=== PATIENT | male | born 1975 ===

== ENCOUNTER → 2018-04-14 15:24 | Outpatient (CLI) | payer OTHER ==
[~2018-04-14 15:24] MED LIST: COLACE100 MG PO; DILTIAZEM 24HR120 MG PO; HYDROCHLOROTH PO; PERCOCET 5-3251 EACH PO
== END | disposition home or self-care (01) ==
LOC: EKG 15:24
DX: K60.3 Anal fistula (principal); Z01.810 Encounter for preprocedural cardiovascular examination

== ENCOUNTER 2018-04-17 05:37 | Day surgery (SDC) | payer OTHER ==
[~2018-04-17 05:37] MED LIST changes: -COLACE100 MG PO; -PERCOCET 5-3251 EACH PO
[2018-04-17] MEDS ORDERED: COLACE100 MG PO (09:36)
[2018-04-17] MEDS ORDERED: PERCOCET 5-3251 EACH PO (09:36)
== END 2018-04-17 13:40 | disposition home or self-care (01) ==
LOC: CIR.AMB 05:37
DX: K60.3 Anal fistula (principal); K62.89 Other specified diseases of anus and rectum